=== PATIENT | female | born 1995 | race Hispanic/Latino ===

== ENCOUNTER → 2019-05-12 12:21 | Outpatient (CLI) | payer MEDICAID, SELFPAY ==
[2019-05-12 12:57] LABS: Add Manual Diff / Slide Review NO; Basophils Absolute Auto 0 /uL (0-100); Basophils Percent Auto 0.4 % (0-2); Eosinophils Absolute Auto 0 /uL (0-450); Eosinophils Percent Auto 0.6 % (2-4); Hematocrit 38.6 % (36-46); Lymphocytes Absolute Auto 1000 /uL (1100-4500); Lymphocytes Percent Auto 18.3 % (25-40); Mean Corpuscular HGB Conc 33.7 % (30-36); Mean Corpuscular Hemoglobin 28.1 PG (26-34); Mean Corpuscular Volume 83.4 fL (80-100); Monocytes Absolute Auto 500 /uL (0-900); Monocytes Percent Auto 7.9 % (3-14); Neutrophils Absolute Auto 4200 /uL (1500-7000); Neutrophils Percent Auto 72.8 % (50-75); Platelet Count 218 X10^3/uL (150-400); Red Blood Cell Count 4.63 X10^6/uL (4.0-5.2); Red Cell Distribution Width 14.9 % (11.6-14.8); White Blood Cell Count 5.7 X10^3/uL (4.5-11.0)
[2019-05-12 13:16] LABS: Glucose 81 mg/dL (70-100)
[2019-05-12 13:17] LABS: Hemoglobin A1C% w Est Avg Glu 4.9 % (4.0-6.0)
[2019-05-12 13:52] LABS: Appearance Urine UA SL CLOUDY; Bilirubin Urine UA NEGATIVE (NEGATIVE); Color Urine UA YELLOW; Glucose Urine UA NEGATIVE (Negative); Ketones Urine UA TRACE (NEGATIVE); Leukocyte Esterase Urine UA TRACE (NEGATIVE); Nitrite Urine UA POSITIVE (Negative); Occult Blood Urine UA NEGATIVE (Negative); Protein Urine UA NEGATIVE (Negative); Urobilinogen Urine UA 0.2 E.U./dL (0.2)
[2019-05-12 14:02] LABS: RBC Urine None Seen (0-5/HPF)
[2019-05-12 14:03] LABS: Bacteria Urine Many (>30); Squamous Epithelial Cell Urine 10-30 /HPF (0-5/HPF); WBC Urine 1-5/HPF (0-5/HPF)
[2019-05-12 16:52] LABS: Urine N gonorrhoeae NOT DETECTED
[2019-05-12 17:00] LABS: Hepatitis B Surface Antigen NEGATIVE s/c (NEGATIVE); Rubella Antibody IgG 11.6 IU/mL (>15)
[2019-05-12 17:12] LABS: Urine Chlamydia NOT DETECTED
[2019-05-12 17:17] LABS: HIV 1 & 2 Ab/Ag 4th Gen Combo NEGATIVE (NEGATIVE); Hep C Virus Ab w/Reflex Quant NEGATIVE s/c (NEGATIVE)
[2019-05-14 15:54] LABS: RPR Screen Nonreactive (Nonreactive)
== END ==
DX: Z34.03 Encounter for supervision of normal first pregnancy, third trimester (principal); Z3A.36 36 weeks gestation of pregnancy
CPT/HCPCS: 36415; 80055; 81003; 81015; 82947; 83036; 86787; 86803; 86850; 86900; 86901; 87086; 87389; 87491; 87591

== ENCOUNTER → 2019-05-19 09:18 | Outpatient (CLI) | payer MEDICAID, SELFPAY ==
[2019-05-20 08:02] LABS: Strep Grp B PCR NEG for Grp B Strep
== END ==
DX: Z34.03 Encounter for supervision of normal first pregnancy, third trimester (principal); Z36.85 Encounter for antenatal screening for Streptococcus B; Z3A.20 20 weeks gestation of pregnancy
CPT/HCPCS: 87653

== ENCOUNTER 2019-06-06 22:45 | Inpatient (IN) | payer MEDICAID, SELFPAY ==
[2019-06-06 23:41] LABS: Add Manual Diff / Slide Review NO; Basophils Absolute Auto 100 /uL (0-100); Basophils Percent Auto 0.7 % (0-2); Eosinophils Absolute Auto 100 /uL (0-450); Eosinophils Percent Auto 0.6 % (2-4); Hematocrit 41.4 % (36-46); Hemoglobin 14.1 g/dL (12.0-16.0); Lymphocytes Absolute Auto 2000 /uL (1100-4500); Lymphocytes Percent Auto 17.4 % (25-40); Mean Corpuscular Hemoglobin 28.5 PG (26-34); Mean Corpuscular Volume 83.9 fL (80-100); Monocytes Absolute Auto 800 /uL (0-900); Monocytes Percent Auto 7.2 % (3-14); Neutrophils Absolute Auto 8700 /uL (1500-7000); Neutrophils Percent Auto 74.1 % (50-75); Platelet Count 219 X10^3/uL (150-400); Red Blood Cell Count 4.94 X10^6/uL (4.0-5.2); Red Cell Distribution Width 16.6 % (11.6-14.8); White Blood Cell Count 11.7 X10^3/uL (4.5-11.0)
--- NOTE | 2019-06-07 01:01 | P.HPOB_ITS ---
OB HPI Date/Time Date of admission: 06/06/19 Date Patient Seen: 06/06/19 Time Patient Seen: 23:10 History of Present Condition Chief complaint: : 1 Para: 0 Estimated Date of Delivery: 06/11/19 Estimated Gestational Age (weeks): 39 Narrative: Helga Alicea is a 23 year old @39+2, presenting fully dilated with bulging membranes. She reports +FM, -LOF, contractions since her exam in the office this AM, and no other complaints obstetrical or otherwise. Her is uncomplicated, except for late presentation for care. Indications Other reason(s) for admission: Impending delivery History of Present care: limited care and initiated at week # (35) Dating criteria: based on 3rd trimester US only Obstetrical complications: none Medical complications: none Preadmission Labs Blood type: A (+) positive -: Antibody screen: negative, GBS status: negative, HBsAG: negative, HIV: negative and RPR/VDLR: negative -: Chlamydia screen: not detected and Gonorrhea screen: not detected -: Rubella: not immune and Varicella: not immune 1 hr GTT: 81 Evaluation Evaluation Baseline heart rate: 135 Variability: Moderate (11-25) monitor accelerations: Present monitor decelerations: Absent Contraction Frequency (minutes): 2 Uterine Contraction Intensity: Moderate Category of Tracing: I Laboratory results: Laboratory Tests 06/06/19 06/06/19 22:48 22:48 WBC 11.7 H RBC 4.94 Hgb 14.1 Hct 41.4 MCV 83.9 MCH 28.5 MCHC 34.0 RDW 16.6 H Plt Count 219 Neut % (Auto) 74.1 Lymph % (Auto) 17.4 L [place] % (Auto) 7.2 Eos % (Auto) 0.6 L Baso % (Auto) 0.7 Neut # (Auto) 8700 H Lymph # (Auto) 2000 [place] # (Auto) 800 Eos # (Auto) 100 Baso # (Auto) 100 Blood Type A Positive Antibody Screen Negative PFSH Social History Smoking Status: Never smoker Meds Home Medications and Allergies Home Medications Medication Instructions Recorded Confirmed Type prenat.vits,kya,zfa-earw-iidvf 1 tab PO DAILY 05/12/19 05/12/19 History Allergies Allergy/AdvReac Type Severity Reaction Status Date / Time No Known Drug Allergies Allergy Verified 05/12/19 11:52 Review of Systems Constitutional Constitutional: Reports system reviewed and no additional complaints, except as documented Cardiovascular Cardiovascular: Reports system reviewed; no additional complaints, except as documented Respiratory Respiratory: Reports system reviewed and no additional complaints, except as documented Gastrointestinal Gastrointestinal: Reports system reviewed and no additional complaints, except as documented Genitourinary Genitourinary: Reports system reviewed and no additional complaints, except as documented Neurologic Neurologic: Reports system reviewed and no additional complaints, except as documented Exam Vital Signs (past 8 hours): 124/91, 98, 38.6 Narrative Exam Narrative: Patient tolerating active labor well. Manual OB Exam: dilated 10, effaced fully, station '+1 and other Presentation: vertex Estimated Weight (lbs): 7 Amniotic Fluid: meconium Objective Labs Result Diagrams: 06/06/19 22:48 Labs: Laboratory Results - last 24 hr 06/06/19 06/06/19 22:48 22:48 WBC 11.7 H RBC 4.94 Hgb 14.1 Hct 41.4 MCV 83.9 MCH 28.5 MCHC 34.0 RDW 16.6 H Plt Count 219 Neut % (Auto) 74.1 Lymph % (Auto) 17.4 L [place] % (Auto) 7.2 Eos % (Auto) 0.6 L Baso % (Auto) 0.7 Neut # (Auto) 8700 H Lymph # (Auto) 2000 [place] # (Auto) 800 Eos # (Auto) 100 Baso # (Auto) 100 Blood Type A Positive Antibody Screen Negative Assessment and Plan Assessment and Plan Assessment and Plan narrative: This patient presents fully dilated and karly q2, with no other complications. She will be admitted per the usual protocol, anticipating imminent delivery. Time Spent with Patient Total time spent with greater than 50% in coordination of care (as documented) at patient's floor/unit and/or counseling patient:: Greater than 35 minutes
--- NOTE | 2019-06-07 01:13 | PM.OBPRVD ---
Labor & Delivery Delivery date: 06/07/19 Intrapartal events: Precipitous Labor < 3 hours, Acceleration and Deceleration Cervical ripening method: none Induction method: none Delivery monitor: external FHT Route of delivery: L&D Laceration Description: Perineal - 2nd Degree Delivery repair: vicryl Estimated blood loss (mL): 250 Anesthesia type: Epidural Narrative: The patient presented fully dilated, and was delivered of a healthy baby boy within 2 hours without augmentation or complication. Her intrapartum course was complicated by variable decelerations with pushing, with return to baseline between contractions. There were no intrapartum or immediate complications. Baby 1: Infant gender: Male Presentation: vertex position: Left Occiput Transverse Placenta delivery description: Spontaneous cord vessel description: 3 Vessels score (1 min): 8 score (5 min): 8 Narrative: Baby delivered from the LOTTIE presentation, shoulder delivered without difficulty. No intrapartum or immediate complications. Plan for aftercare: Routine care.
[2019-06-07] MEDS: IBUPROFEN 600 MG TABLET PO (04:53)
[2019-06-07] MEDS: miSOPROStol 200 MCG TABLET 800 MCG PR (05:15)
[2019-06-07] MEDS: CARBOPROST 250 MCG/ML AMPUL INJ (05:48)
[2019-06-07 06:27] LABS: Basophils Percent Auto 0.1 % (0-2); Hemoglobin 10.9 g/dL (12.0-16.0); Mean Corpuscular Hemoglobin 28.6 PG (26-34); Mean Corpuscular Volume 84.2 fL (80-100); Monocytes Percent Auto 7.5 % (3-14); Neutrophils Percent Auto 78.4 % (50-75); Platelet Count 197 X10^3/uL (150-400); Red Blood Cell Count 3.79 X10^6/uL (4.0-5.2); Red Cell Distribution Width 16.8 % (11.6-14.8); White Blood Cell Count 11.8 X10^3/uL (4.5-11.0)
[2019-06-07 06:28] LABS: Add Manual Diff / Slide Review NO; Basophils Absolute Auto 0 /uL (0-100); Eosinophils Absolute Auto 0 /uL (0-450); Lymphocytes Absolute Auto 1700 /uL (1100-4500); Monocytes Absolute Auto 900 /uL (0-900); Neutrophils Absolute Auto 9300 /uL (1500-7000)
[2019-06-07 06:32] LABS: INR 0.9 (0.9-1.3); Prothrombin Time 10.4 SECONDS (10.1-12.7)
[2019-06-07 06:41] LABS: PTT Partial Thromboplastin Tim 25 SECONDS (26.4-36.2)
[2019-06-07] MEDS: MORPHINE 4 MG/ML INJ IV (06:44)
[2019-06-07 06:49] LABS: Fibrinogen 386 mg/dL (211-428)
--- NOTE | 2019-06-07 07:02 | P.PNOB_ITS ---
Subjective - OB Subjective Date Patient Seen: 06/07/19 Time Patient Seen: 06:03 Interval history: Called to bedside to assess profuse vaginal bleeding starting abruptly 5 hours after vaginal delivery. Nursing staff reports that fundus remained firm and at umbilicus, but that patient passed some old clot followed by ongoing moderate but steady red bleeding. Patient denied cramping, dizziness, chest pain, PIERCE, or any other complaints except fatigue. Bimanual exam revealed scant clot in vagina, and cervix allowed palpation of uterus with no revealed retained products of conception. Further exam revealed an enlarging right lateral hematoma within the right vaginal wall, with brisk bleeding from a split in the mucosa overlying the hematoma. A jade catheter was placed, and 1.5 lengths of 1 iodoform gauze was used to pack the vagina with minimal ongoing blood loss. Exam Vital Signs (past 8 hours): 120s/70s-> 90s/60s -> 100s/70s. HR 110s. T 99.7F. EBL 500ccs, QBL per nursing staff 1175ccs. Objective Labs Result Diagrams: 06/07/19 06:18 Labs: Laboratory Results - last 24 hr 06/06/19 06/06/19 06/07/19 22:48 22:48 06:18 WBC 11.7 H 11.8 H RBC 4.94 3.79 L Hgb 14.1 10.9 L Hct 41.4 32.0 L MCV 83.9 84.2 MCH 28.5 28.6 MCHC 34.0 34.0 RDW 16.6 H 16.8 H Plt Count 219 197 Neut % (Auto) 74.1 78.4 H Lymph % (Auto) 17.4 L 14.0 L [place] % (Auto) 7.2 7.5 Eos % (Auto) 0.6 L 0.0 L Baso % (Auto) 0.7 0.1 Neut # (Auto) 8700 H 9300 H Lymph # (Auto) 2000 1700 [place] # (Auto) 800 900 Eos # (Auto) 100 0 Baso # (Auto) 100 0 PT INR APTT Fibrinogen Blood Type A Positive Antibody Screen Negative 06/07/19 06/07/19 06/07/19 06:18 06:18 06:18 WBC RBC Hgb Hct MCV MCH MCHC RDW Plt Count Neut % (Auto) Lymph % (Auto) [place] % (Auto) Eos % (Auto) Baso % (Auto) Neut # (Auto) Lymph # (Auto) [place] # (Auto) Eos # (Auto) Baso # (Auto) PT 10.4 INR 0.9 APTT 25 L Fibrinogen 386 Blood Type Antibody Screen Assessment & Plan Plan day: 0 Comments: This patient is a on PPD#0, with a course complicated by an enlarging and bleeding hematoma, currently controlled with vaginal packing. The jade catheter and packing should remain in place for 12-24 hours, after which it can be removed and ongoing bleeding assessed. - Close monitoring of vitals - LR@125ccs/hr - Close monitoring of bleeding/saturation of packing - Patient s/p 1x Ancef due to repeat exams, s/p 70mu picotin, 1x doses of he mabate, methergine, and cytotec - Regular diet later this AM if bleeding and vitals remains stable - Further plan for surgical exploration if bleeding continues. Time Spent With Patient Time: Total time spent is greater than 50% in coordination of care (as documented) at patient's floor/unit and/or counseling patient: Time with patient: Greater than 35 minutes
[2019-06-07] MEDS: METHYLERGONOVINE 0.2 MG TABLET PO ×3 (11:23→19:51)
--- NOTE | 2019-06-07 14:00 | PM.PN.1 ---
Subjective Subjective Date Patient Seen: 06/07/19 Time Patient Seen: 14:00 Interval history: Patient reports feeling well, with improved fatigue, no dizziness, SOB, PIERCE, chest pain, or other complaints. Exam Vital Signs (past 8 hours): 11:15: 115/74, HR 72, 98.6 F Const General: healthy appearing and comfortable Orientation: alert, awake and oriented x3 GI Palpation: soft and No tender Other: vaginal packing in situ, moderately soaked but with minimal ongoing bleeding. Pad changed 1 hour ago with area of blood approx 5cm by 5 cm. Jade in situ, UOP >150ccs/hr of moderately concentrated urine. Objective Labs Result Diagrams: 06/07/19 06:18 Labs: Laboratory Results - last 24 hr 06/06/19 06/06/19 06/07/19 22:48 22:48 06:18 WBC 11.7 H 11.8 H RBC 4.94 3.79 L Hgb 14.1 10.9 L Hct 41.4 32.0 L MCV 83.9 84.2 MCH 28.5 28.6 MCHC 34.0 34.0 RDW 16.6 H 16.8 H Plt Count 219 197 Neut % (Auto) 74.1 78.4 H Lymph % (Auto) 17.4 L 14.0 L [place] % (Auto) 7.2 7.5 Eos % (Auto) 0.6 L 0.0 L Baso % (Auto) 0.7 0.1 Neut # (Auto) 8700 H 9300 H Lymph # (Auto) 2000 1700 [place] # (Auto) 800 900 Eos # (Auto) 100 0 Baso # (Auto) 100 0 PT INR APTT Fibrinogen Blood Type A Positive Antibody Screen Negative 06/07/19 06/07/19 06/07/19 06:18 06:18 06:18 WBC RBC Hgb Hct MCV MCH MCHC RDW Plt Count Neut % (Auto) Lymph % (Auto) [place] % (Auto) Eos % (Auto) Baso % (Auto) Neut # (Auto) Lymph # (Auto) [place] # (Auto) Eos # (Auto) Baso # (Auto) PT 10.4 INR 0.9 APTT 25 L Fibrinogen 386 Blood Type Antibody Screen Assessment & Plan Assessment & Plan narrative: This patient is a 23yo PPD#0 s/p , complicated by hemorrhage secondary to a bleeding vaginal hematoma. The patient has had vaginal packing in situ since the hemorrhage to good effect, with mild to moderate bleeding since, normalized vitals, no symptoms, and good urine output indicating hemodynamic stability. The patient will have the jade and packing removed tomorrow AM, with otherwise routine care. Time Spent With Patient Time with patient: less than 15 minutes
[2019-06-08] MEDS: IBUPROFEN 600 MG TABLET PO (09:37)
--- NOTE | 2019-06-08 10:24 | P.PNOB_ITS ---
Subjective - OB Subjective Patient comments: no complaints Narrative: This patient is day 1 status post vaginal delivery complicated by only to hemorrhage due to bleeding vaginal hematoma and uterine atony. Patient is status post 24 hours of vaginal packing and Ram catheter along with Methergine series, with good control of her bleeding. Date Patient Seen: 06/08/19 Time Patient Seen: 10:00 Interval history: Patient reports feeling well today, with good pain control, tolerating regular diet, no other complaints obstetrical or otherwise. Eager for removal of Ram and vaginal packing. Exam Vital Signs (past 8 hours): 117/76, HR 110, T 98.4, urine output 100+ cc per hour Narrative Exam Narrative: Patient resting in bed with baby, well-appearing. Const General: cooperative, healthy appearing and comfortable Resp Effort & Inspection: normal respiratory effort Auscultation: clear to auscultation bilaterally Cardio Rate: regular rate Rhythm: regular rhythm GI Palpation: soft and No tender Other: Vaginal packing removed in full, moderately saturated. Small amount of clot removed with vaginal packing. Stitches intact to palpation. Vaginal h ematoma significantly reduced in size from presentation. No active bleeding. Ram catheter removed. No signs of infection. Objective Labs Result Diagrams: 06/07/19 06:18 Assessment & Plan Assessment and Plan (1) hemorrhage, delivered, current hospitalization: Start date: 06/07/19 Problem details: Secondary to both uterine atony and large bleeding vaginal hematoma. Status: Acute Assessment and plan: This patient is now day 1 status post of vaginal delivery complicated by hemorrhage due to bleeding vaginal hematoma and uterine atony. The bleeding has been well controlled with vaginal packing that is now removed, and the patient is otherwise well appearing no signs or symptoms of infection, ongoing bleeding, or any other complaints. The patient is mildly tachycardic today, though no with a normal temperature, and will be monitored throughout the day. -CBC now -for assisted ambulation -status post Ancef, monitor for signs of infection. -regular diet, pain medication as needed. Current Visit: Yes Plan day: 1 plan OB: routine care Time Spent With Patient Time: Total time spent is greater than 50% in coordination of care (as documented) at patient's floor/unit and/or counseling patient: Time with patient: less than 15 minutes
[2019-06-08 11:41] LABS: Add Manual Diff / Slide Review NO; Basophils Absolute Auto 0 /uL (0-100); Basophils Percent Auto 0.3 % (0-2); Eosinophils Absolute Auto 100 /uL (0-450); Eosinophils Percent Auto 0.7 % (2-4); Hemoglobin 7.2 g/dL (12.0-16.0); Lymphocytes Absolute Auto 1300 /uL (1100-4500); Lymphocytes Percent Auto 12.8 % (25-40); Mean Corpuscular HGB Conc 34.4 % (30-36); Mean Corpuscular Hemoglobin 29.3 PG (26-34); Mean Corpuscular Volume 85.1 fL (80-100); Monocytes Absolute Auto 700 /uL (0-900); Monocytes Percent Auto 6.7 % (3-14); Neutrophils Absolute Auto 8000 /uL (1500-7000); Neutrophils Percent Auto 79.5 % (50-75); Platelet Count 136 X10^3/uL (150-400); Red Blood Cell Count 2.47 X10^6/uL (4.0-5.2); Red Cell Distribution Width 17.2 % (11.6-14.8)
[2019-06-08 16:30] LABS: Add Manual Diff / Slide Review NO; Basophils Absolute Auto 0 /uL (0-100); Basophils Percent Auto 0.3 % (0-2); Eosinophils Absolute Auto 200 /uL (0-450); Eosinophils Percent Auto 1.5 % (2-4); Hematocrit 21.7 % (36-46); Hemoglobin 7.3 g/dL (12.0-16.0); Lymphocytes Absolute Auto 1900 /uL (1100-4500); Lymphocytes Percent Auto 15.2 % (25-40); Mean Corpuscular HGB Conc 33.7 % (30-36); Mean Corpuscular Hemoglobin 28.9 PG (26-34); Mean Corpuscular Volume 85.9 fL (80-100); Monocytes Absolute Auto 800 /uL (0-900); Monocytes Percent Auto 6.7 % (3-14); Neutrophils Absolute Auto 9400 /uL (1500-7000); Neutrophils Percent Auto 76.3 % (50-75); Platelet Count 155 X10^3/uL (150-400); Red Blood Cell Count 2.53 X10^6/uL (4.0-5.2); Red Cell Distribution Width 17.4 % (11.6-14.8); White Blood Cell Count 12.3 X10^3/uL (4.5-11.0)
--- NOTE | 2019-06-08 16:32 | P.TNLD_ITS ---
Visit Information Visit Information Date of evaluation: 06/08/19 Primary OB Provider: Laura An On-call OB Provider: Krista Ferrer Reason for Evaluation: Yes [facility] Social History Smoking Status: Never smoker Objective Labs Result Diagrams: 06/08/19 11:20 Labs: Laboratory Results - last 24 hr 06/08/19 11:20 WBC 10.0 RBC 2.47 L Hgb 7.2 L Hct 21.0 L MCV 85.1 MCH 29.3 MCHC 34.4 RDW 17.2 H Plt Count 136 L Neut % (Auto) 79.5 H Lymph % (Auto) 12.8 L [place] % (Auto) 6.7 Eos % (Auto) 0.7 L Baso % (Auto) 0.3 Neut # (Auto) 8000 H Lymph # (Auto) 1300 [place] # (Auto) 700 Eos # (Auto) 100 Baso # (Auto) 0 Evaluation Evaluation Laboratory results: Laboratory Tests 06/06/19 06/06/19 06/07/19 22:48 22:48 06:18 WBC 11.7 H 11.8 H RBC 4.94 3.79 L Hgb 14.1 10.9 L Hct 41.4 32.0 L MCV 83.9 84.2 MCH 28.5 28.6 MCHC 34.0 34.0 RDW 16.6 H 16.8 H Plt Count 219 197 Neut % (Auto) 74.1 78.4 H Lymph % (Auto) 17.4 L 14.0 L [place] % (Auto) 7.2 7.5 Eos % (Auto) 0.6 L 0.0 L Baso % (Auto) 0.7 0.1 Neut # (Auto) 8700 H 9300 H Lymph # (Auto) 2000 1700 [place] # (Auto) 800 900 Eos # (Auto) 100 0 Baso # (Auto) 100 0 PT INR APTT Fibrinogen Blood Type A Positive Antibody Screen Negative 06/07/19 06/07/19 06/07/19 06:18 06:18 06:18 WBC RBC Hgb Hct MCV MCH MCHC RDW Plt Count Neut % (Auto) Lymph % (Auto) [place] % (Auto) Eos % (Auto) Baso % (Auto) Neut # (Auto) Lymph # (Auto) [place] # (Auto) Eos # (Auto) Baso # (Auto) PT 10.4 INR 0.9 APTT 25 L Fibrinogen 386 Blood Type Antibody Screen 06/08/19 11:20 WBC 10.0 RBC 2.47 L Hgb 7.2 L Hct 21.0 L MCV 85.1 MCH 29.3 MCHC 34.4 RDW 17.2 H Plt Count 136 L Neut % (Auto) 79.5 H Lymph % (Auto) 12.8 L [place] % (Auto) 6.7 Eos % (Auto) 0.7 L Baso % (Auto) 0.3 Neut # (Auto) 8000 H Lymph # (Auto) 1300 [place] # (Auto) 700 Eos # (Auto) 100 Baso # (Auto) 0 PT INR APTT Fibrinogen Blood Type Antibody Screen Diagnosis, Plan/Disposition Final Diagnosis (1) hemorrhage, delivered, current hospitalization: Current Visit: Yes Status: Acute Problem details: Secondary to both uterine atony and large bleeding vaginal hematoma.
--- NOTE | 2019-06-08 16:45 | P.PNOB_ITS ---
Subjective - OB Subjective Patient comments: no complaints, pain well controlled and tolerating diet baby status: doing well feeding status: breast and bottle feeding Narrative: This patient is a 23-year-old day 1, status post a 12:30 a.m. vaginal delivery complicated by a hemorrhage due to both uterine atony and of vaginal hematoma. The patient is status post 24 hours of vaginal packing and Ram, which was removed this morning. She remains stable, with mild tachycardia but no anemia symptoms and a stable H&H. Date Patient Seen: 06/08/19 Time Patient Seen: 16:46 Interval history: Patient reports feeling well today, ambulating to the bathroom without shortness of breath, tachycardia, dizziness, or any other complaints. Patient reports mild lochia, good pain control, and good urine output. Patient denies any other concerns obstetrical or otherwise. Exam Vital Signs (past 8 hours): Heart rate 100s-110s, BP 115/76, T 98.4 Narrative Exam Narrative: Patient well appearing, resting in bed holding baby. GI Palpation: soft and No tender External Female Exam: external appearance normal Other: Minimal lochia. Vaginal hematoma palpable on right side wall, but much smaller than when 1st diagnosed. No obvious breakdown of perineal laceration repair, exam limited by bed. Objective Labs Result Diagrams: 06/08/19 16:27 Labs: Laboratory Results - last 24 hr 06/08/19 06/08/19 11:20 16:27 WBC 10.0 12.3 H RBC 2.47 L 2.53 L Hgb 7.2 L 7.3 L Hct 21.0 L 21.7 L MCV 85.1 85.9 MCH 29.3 28.9 MCHC 34.4 33.7 RDW 17.2 H 17.4 H Plt Count 136 L 155 Neut % (Auto) 79.5 H 76.3 H Lymph % (Auto) 12.8 L 15.2 L [place] % (Auto) 6.7 6.7 Eos % (Auto) 0.7 L 1.5 L Baso % (Auto) 0.3 0.3 Neut # (Auto) 8000 H 9400 H Lymph # (Auto) 1300 1900 [place] # (Auto) 700 800 Eos # (Auto) 100 200 Baso # (Auto) 0 0 Assessment & Plan Assessment and Plan (1) hemorrhage, delivered, current hospitalization: Problem details: Secondary to both uterine atony and large bleeding vaginal hematoma. Status: Acute Assessment and plan: This patient had a large hemorrhage of approximately 1 L, she has been stable for almost 36 hours, now hemodynamically stable, with mild and appropriate bleeding is meeting all goals including ambulating without anemia symptoms, has a stable hemoglobin without evidence of ongoing concealed bleeding. The patient was counseled about dischar ge with iron supplementation versus the option of blood transfusion, and would like to be discharged with iron supplementation. The patient had a previously scheduled visit with Dr. Gutierres for care in 5 days, and will keep this appointment. The patient was counseled about reasons for return. Current Visit: Yes Time Spent With Patient Time: Total time spent is greater than 50% in coordination of care (as documented) at patient's floor/unit and/or counseling patient: Time with patient: 15-24 minutes
[2019-06-08 16:50] VITALS: BP 114/78; PULSE 122; RESP 18; TEMP 36.9
--- NOTE | 2019-06-08 17:05 | PM.DS.1 ---
History of Present Illness History of Present Illness Chief complaint: LABOR & DELIVERY Narrative: This patient is a 23-year-old day 1 status post vaginal delivery complicated by hemorrhage secondary to vaginal hematoma and uterine atony, EBL 1 L. the patient was treated with utero tonics including a Methergine series, and 24 hours of vaginal packing and Ram catheter. She tolerated this well with good resolution of her bleeding, and has a stable H&H and no acute blood-loss anemia symptoms today. Discharge Providers Provider Date of admission: 06/06/19 22:45 Discharge Date: 06/08/19 Consults: 06/07/19 01:07 Consult to Registered Nurse Surgical Services Routine Comment: Discharge provider: Eusebio Gutierres MD Summary Hospital Course Discharge Diagnosis: Vaginal delivery complicated by hemorrhage. Hospital Course: This patient is a 23-year-old day 1 status post vaginal delivery complicated by hemorrhage secondary to vaginal hematoma and uterine atony, EBL 1 L. the patient was treated with utero tonics including a Methergine series, and 24 hours of vaginal packing and Ram catheter. She tolerated this well with good resolution of her bleeding, and has a stable H&H and no acute blood-loss anemia symptoms today. Status at Discharge Cognitive/behavioral status at discharge: oriented Functional status at discharge: independent ambulation Overall status at discharge: patient is progressing back to baseline Time Spent with Patient Time spent: Greater than 30 minutes Exam Vital Signs (past 8 hours): - 06/08/19 16:50 Temperature 98.4 F Pulse Rate 122 H Respiratory Rate 18 Blood Pressure 114/78 Objective Labs Result Diagrams: 06/08/19 16:27 Labs: Laboratory Results - last 24 hr 06/08/19 06/08/19 11:20 16:27 WBC 10.0 12.3 H RBC 2.47 L 2.53 L Hgb 7.2 L 7.3 L Hct 21.0 L 21.7 L MCV 85.1 85.9 MCH 29.3 28.9 MCHC 34.4 33.7 RDW 17.2 H 17.4 H Plt Count 136 L 155 Neut % (Auto) 79.5 H 76.3 H Lymph % (Auto) 12.8 L 15.2 L [place] % (Auto) 6.7 6.7 Eos % (Auto) 0.7 L 1.5 L Baso % (Auto) 0.3 0.3 Neut # (Auto) 8000 H 9400 H Lymph # (Auto) 1300 1900 [place] # (Auto) 700 800 Eos # (Auto) 100 200 Baso # (Auto) 0 0 Discharge Plan Discharge Plan Patient Disposition: Home Discharge comment: Hemodynamically stable patient discharged on day 1 after course complicated by hemorrhage. See progress notes for details. Discharge Med Rec/Prescriptions Prescriptions: New ferrous sulfate [FerrouSul] 325 mg (65 mg iron) tablet 325 mg PO BID Qty: 120 RF: 0 Continued prenat.vits,kya,adp-ehjb-inlko Tablet 1 tab PO DAILY RF: 0 Follow up/Referrals: Eusebio Gutierres MD [Physician] - 1 Week Provider Discharge Instructions Diet: Regular Activity: Nothing in the vagina for 6 weeks. Avoid lifting more than 10 lb for 6 weeks. If you have increased bleeding, fevers, chills, increasing abdominal pain, dizziness, trouble breathing, or any other concerns or complaints, called the office number or come to the emergency room. Skin/Wound/Dressing Care Report to your healthcare provider any signs of infection, such as:: chills, fever, night sweats, increased pain, unusual drainage and unusual redness Visit Report/Discharge Packet Instructions: DI for Hemorrhage Stand Alone Forms: Discharge: Care
== END 2019-06-08 18:12 | disposition home or self-care (01) | DRG 806 ==
PROVIDERS: Admitting Provider Obstetrics & Gynecology; Visit Provider Obstetrics & Gynecology
DX: O62.3 Precipitate labor (principal); O72.1 Other immediate postpartum hemorrhage; Z37.0 Single live birth; Z3A.39 39 weeks gestation of pregnancy; O70.1 Second degree perineal laceration during delivery; O77.0 Labor and delivery complicated by meconium in amniotic fluid
CPT/HCPCS: 01967; 36415; 59050; 59410; 85025; 85384; 85610; 85730; 86850; 86900; 86901; G0379; J2270; S0191